=== PATIENT | male | born 1970 | race Hispanic/Latino ===

== ENCOUNTER → 2017-12-07 | Outpatient (CLI) | payer OTHER ==
--- NOTE | 2017-12-07 09:23 | Diagnostic Imaging Report ---
PROCEDURE:TESTICULAR ULTRASOUND COMPARISON:None. INDICATIONS:benign neoplasm of epidiymis TECHNIQUE: Jewell-scale and color doppler images of the testicles and scrotal contents were obtained. Duplex imaging with spectral waveform analysis was performed of the testicular arteries and veins. FINDINGS: RIGHT SCROTUM: Testicle: 5.4 x 2.5 x 4.1 cm. Uniform parenchymal echotexture. Normal arterial and venous flow by color Doppler and spectral waveform analysis. Epididymal head: 0.7 x 0.6 x 0.5 cm. Hydrocele: None Varicocele: None LEFT SCROTUM: Testicle: 5.3 x 2.6 x 4 cm. Uniform parenchymal echotexture. Normal arterial and venous flow by color Doppler and spectral waveform analysis. Epididymal head: 0.7 x 1 x 1 cm. Hydrocele: None Varicocele: None CONCLUSION: Unremarkable scrotal ultrasound. Dictated by: Mendoza Houston M.D. on 12/07/2017 at 9:30 Electronically approved by: Mendoza Houston M.D. on 12/07/2017 at 9:30
--- NOTE | 2017-12-07 09:24 | Diagnostic Imaging Report ---
PROCEDURE:TESTICULAR DOPPLER ULTRASOUND COMPARISON:None. INDICATIONS:benign neoplasm of epididymis TECHNIQUE: Jewell-scale and color doppler images of the testicles and scrotal contents were obtained. Duplex imaging with spectral waveform analysis was performed of the testicular arteries and veins. FINDINGS: see conclusion CONCLUSION: Refer to "[facility] TESTICULAR" also from 12/07/2017 for further details. Dictated by: Mendoza Houston M.D. on 12/07/2017 at 9:30 Electronically approved by: Mendoza Houston M.D. on 12/07/2017 at 9:30
== END ==
LOC: US 07:41
PROVIDERS: ATTEND Urology
DX: D29.30 Benign neoplasm of unspecified epididymis (principal)
CPT/HCPCS: 76870; 93976

== ENCOUNTER → 2020-03-23 | Outpatient (CLI) | payer OTHER ==
[~2020-03-23] MED LIST: COVID-19 VACC, MRNA(MODERNA)/PF 100 MCG/0.5 ML VIAL IM ONE
== END ==
LOC: VACCPMC 09:45
DX: Z23 Encounter for immunization (principal); Z20.822 Contact with and (suspected) exposure to COVID-19

== ENCOUNTER → 2020-04-22 | Outpatient (CLI) | payer OTHER | END | DRG 951 | LOC: VACCPMC 07:41 | DX: Z23 Encounter for immunization (principal); Z20.822 Contact with and (suspected) exposure to COVID-19 | CPT/HCPCS: 0012A; 91301 ==